=== PATIENT | male | born 1995 | race Caucasian/White ===

== ENCOUNTER 2017-02-13 12:42 | Emergency (ER) | payer OTHER ==
[2017-02-13 12:48] VITALS: BP 121/73
[2017-02-13] MEDS ORDERED: DEXAMETHASONE 10 MG/ML VIAL PO STA (13:02)
[2017-02-13] MEDS ORDERED: KETOROLAC 60 MG/2 ML VIAL IM STA (13:02)
--- NOTE | 2017-02-13 13:10 | ED Physician Documentation ---
PD HPI BACK PAIN - Stated complaint Stated Complaint: BACK PX - Chief complaint Chief Complaint: Back Pain - History obtained from History obtained from: Patient - History of Present Illness Timing - onset: Yesterday Timing - duration: Hours Timing - details: Gradual onset Location: Lower Quality: Pain, Spasm, Sharp Associated symptoms: No: Fever, Weakness, Numbness, Incontinent of urine, Unable to urinate, Hematuria, Incontinent of stool Improves with: Rest Worsened by: Movement Contributing factors: Lifting Similar symptoms before: Diagnosis (back strain) Recently seen: Not recently seen - Additional information Additional information: 22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 He does state that he usually does a lot of lifting at work and yesterday he did much more than usual. He has had a similar incident previously with back pain like this when he moved his apartment up 3 flights of stairs. He states that yesterday while he was doing this it felt like he was getting workout but he did not really have much pain that evening he developed worsening pain he slept with a heating pack on and this morning he could barely get out of bed. He is not having any difficulty with numbness tingling or pain down the legs. Review of Systems Constitutional: denies: Fever, Chills, Myalgias Eyes: denies: Decreased vision Ears: denies: Ear pain Nose: denies: Congestion Throat: denies: Sore throat Cardiac: denies: Chest pain / pressure Respiratory: denies: Dyspnea, Cough GI: denies: Abdominal Pain, Nausea, Vomiting : denies: Dysuria, Frequency Skin: denies: Rash Musculoskeletal: reports: Back pain. denies: Neck pain, Extremity pain Neurologic: denies: Generalized weakness, Focal weakness, Numbness PD PAST MEDICAL HISTORY - Present Medications Home Medications: Ambulatory Orders Medication Instructions Recorded Confirmed Cyclobenzaprine [Flexeril] 10 mg PO TID PRN #20 tablet 02/13/17 HYDROcod/ACETAM 5/325 [Risco 5/325] 1 - 2 ea PO Q6H PRN #15 tablet 02/13/17 - Allergies Allergies/Adverse Reactions: Allergies Allergy/AdvReac Type Severity Reaction Status Date / Time No Known Drug Allergies Allergy Verified 02/13/17 12:48 PD ED PE NORMAL - Vitals Vital signs reviewed: Yes (Normal) - General General: No acute distress, Well developed/nourished - HEENT HEENT: Atraumatic, PERRL - Neck Neck: Supple, no meningeal sign - Respiratory Respiratory: No respiratory distress - Back Back: No CVA TTP, Other (There is dense spasm to the paraspinous muscles of the lower lumbar spine bilaterally.) - Derm Derm: Normal color, Warm and dry, No rash - Extremities Extremities: No deformity, No edema - Neuro Neuro: No motor deficit, No sensory deficit - Psych Psych: Normal mood, Normal affect Results - Vitals Vitals: Vital Signs - 24 hr 02/13/17 12:46 Temperature 36.6 C Heart Rate 62 Respiratory 18 Rate Blood Pressure 121/73 O2 Saturation 96 Oxygen O2 Source Room air PD MEDICAL DECISION MAKING - ED course Complexity details: considered differential, d/w patient ED course: 22-year-old male with overuse of the lower back has significant spasm and pain. He is given 10 mg of dexamethasone orally and 60 mg of Toradol IM. Departure - Departure Disposition: 01 Home, Self Care Clinical Impression: Spasm of back muscles Condition: Stable Instructions: ED Spasm Back No Trauma Follow-Up: [facility] [Provider Group] Prescriptions: Cyclobenzaprine [Flexeril] 10 mg PO TID PRN #20 tablet PRN Reason: Spasms HYDROcod/ACETAM 5/325 [Risco 5/325] 1 - 2 ea PO Q6H PRN #15 tablet PRN Reason: Pain Forms: Activity restrictions
[2017-02-13] MEDS ORDERED: DEXAMETHASONE 10 MG/ML VIAL ONE (13:22)
[2017-02-13] MEDS ORDERED: CHERRY SYRUP 10 ML UDC PO ONE (13:22)
[2017-02-13] MEDS ORDERED: KETOROLAC 60 MG/2 ML VIAL ONE (13:22)
== END 2017-02-13 13:36 | disposition home or self-care (01) ==
LOC: ED 12:42
DX: M62.830 Muscle spasm of back (principal); M54.5 Low back pain
CPT/HCPCS: 96372; 99283; A9270